=== PATIENT | male | born 1955 | race Two or more races ===

== ENCOUNTER 2023-08-06 08:56 | Emergency (ER) | payer MEDICARE, OTHER ==
[~2023-08-06] VITALS: Ht 185.4 cm; Wt 100.0 kg
[2023-08-06 09:07] VITALS: TEMP 98
[2023-08-06 11:45] VITALS: BP 122/74; PULSE 70; RESP 16
== END 2023-08-06 12:20 | disposition home or self-care (01) ==
LOC: EMS 08:56
DX: T83.021A Displacement of indwelling urethral catheter, initial encounter (principal); F41.9 Anxiety disorder, unspecified; J44.9 Chronic obstructive pulmonary disease, unspecified; F32.A Depression, unspecified; E03.9 Hypothyroidism, unspecified; F17.210 Nicotine dependence, cigarettes, uncomplicated; Z98.890 Other specified postprocedural states
CPT/HCPCS: 99282; Z7502